=== PATIENT | male | born 1970 | race Two or more races ===

== ENCOUNTER 2020-06-21 17:09 | Emergency (ER) | payer SELFPAY ==
[~2020-06-21] VITALS: Ht 172.7 cm; Wt 79.2 kg
[2020-06-21] MEDS ORDERED: ACETAMINOPHEN 500 MG TABLET ONE ×2 (17:23→19:07)
--- NOTE | 2020-06-21 17:27 | NUR ---
MATT [phone] WILL SEAT NAILER PT WHEN READY FOR DC.
[2020-06-21] MEDS ORDERED: ACETAMINOPHEN 500 MG TABLET PO ONE (17:30)
--- NOTE | 2020-06-21 17:58 | NUR ---
PT C/O FEVER, SOB AND COUGH X 5 DAYS. PT STATES HE ALSO HAS NAUSEA, BUT HAS NOT VOMITED YET. PT WAS TESTED FOR COVID TODAY AT [facility] BY [facility].
[2020-06-21] MEDS ORDERED: IBUPROFEN 600 MG TABLET PO ONE (18:00)
--- NOTE | 2020-06-21 18:03 | NUR ---
PT ALSO STATES HE HAS A SORE THROAT AND PAIN IN THE CENTER OF HIS BACK WHEN COUGHING.
[2020-06-21] MEDS ORDERED: IBUPROFEN 200 MG TABLET ONE (18:06)
[2020-06-21 18:43] LABS: ALANINE AMINOTRANSFERASE 51 U/L (12-78); ALBUMIN 2.6 g/dL (3.4-5.0); ANION GAP 6 mmol/L (5-15); CALCIUM 8.3 mg/dL (8.5-10.1); CHLORIDE 101 mmol/L (98-107); CREATININE 1.15 mg/dL (0.7-1.3)
[2020-06-21 18:45] LABS: ALKALINE PHOSPHATASE 86 U/L (45-117); BILIRUBIN,TOTAL 0.5 mg/dL (0.2-1.0); TOTAL PROTEIN 7.4 g/dL (6.4-8.2)
[2020-06-21 19:01] LABS: BASOPHILS % (AUTO) 0 % (0-1); EOSINOPHILS % (AUTO) 0 % (1-7); LYMPHOCYTES % (AUTO) 16 % (22-44); MEAN CORPUSCULAR HEMOGLOBIN 30.1 pg (27.5-34.5); MEAN PLATELET VOLUME 8.5 fL (7.4-10.4); MONOCYTES % (AUTO) 4 % (2-9); NEUTROPHILS % (AUTO) 80 % (42-75); PLATELET COUNT 139 x10^3/uL (130-400); RED BLOOD COUNT 5.22 x10^6/uL (4.38-5.82); RED CELL DISTRIBUTION WIDTH 12.9 % (9.4-14.8)
--- NOTE | 2020-06-21 19:01 | NUR ---
REPORT FROM YURY MARTIN. PT SITTING IN BED, CONNECTED TO ALL MONITORS. NADN. GIVEN URINAL, ALL NEEDS MET AT THIS TIME.
[2020-06-21 19:03] LABS: MD NO
[2020-06-21] MEDS ORDERED: SODIUM CHLORIDE FLUSH 10ML SYR IVF ONE (19:30)
[2020-06-21] MEDS ORDERED: SODIUM CHLORIDE 0.9% 1,000ML IVBOLUS ONE (19:30)
[2020-06-21] MEDS ORDERED: INSULIN SINGLE DOSE, ER ONE (20:29)
[2020-06-21] MEDS ORDERED: INSULIN REGULAR 100 UNITS/ML, 3ML VIAL SQ-INSULIN ONE (20:30)
[2020-06-21 21:06] VITALS: BP 124/72
== END 2020-06-21 21:09 | disposition home or self-care (01) ==
LOC: ED 20:45
DX: U07.1 COVID-19 (principal); J18.9 Pneumonia, unspecified organism; I10 Essential (primary) hypertension; E11.9 Type 2 diabetes mellitus without complications; R00.0 Tachycardia, unspecified; R06.02 Shortness of breath
CPT/HCPCS: 36415; 71045; 80053; 82962; 85025; 93005; 96360; 99285; J1815; J7030